=== PATIENT | female | born 2000 | race Two or more races ===

== ENCOUNTER 2024-06-03 12:48 | Emergency (ER) | payer OTHER ==
[~2024-06-03] VITALS: Ht 160 cm; Wt 56.7 kg
[2024-06-03 13:28] VITALS: BP 116/83; O2SAT 100
[2024-06-03] MEDS ORDERED: RINGERS SOLUTION,LACTATED 1,000 ML IV STA (13:58)
[2024-06-03] MEDS ORDERED: PIPERACILLIN/TAZOBACTAM SODIUM 2.25 GM VIAL IV STA (13:59)
[2024-06-03 14:46] LABS: HEMATOCRIT 42.9 % (36.0-45.00); HEMOGLOBIN 14.7 g/dL (12.0-15.00); MEAN CELL VOLUME 86.1 fL (80.00-100.00); MEAN CORPUSCULAR HEMOGLOBIN 29.6 pg (27.00-32.0); MEAN CORPUSCULAR HGB CONC 34.4 g/dl (32.0-36.0); PLATELET COUNT 242 K/uL (150-450); RED BLOOD COUNT 4.98 M/uL (4.00-6.00); RED CELL DISTRIBUTION WIDTH 13.4 % (11.5-14.5)
[2024-06-03 15:04] LABS: INR 1.02; PROTHROMBIN TIME 11.1 SECONDS (9.0-11.5)
[2024-06-03 15:05] LABS: CREATININE SERUM 0.92 mg/dL (0.55-1.02); GFR 76.33; POTASSIUM 3.99 mEq/L (3.5-5.1)
[2024-06-03 15:56] LABS: URINE APPEARANCE Clear; URINE BILIRRUBIN Negative (NEGATIVE); URINE BLOOD Negative; URINE COLOR Dark Yellow; URINE GLUCOSE Negative (NEGATIVE); URINE KETONE 15 (NEGATIVE); URINE LEUKOCYTE Moderate; URINE NITRATE Negative; URINE PROTEIN 30 (NEGATIVE)
[2024-06-03 15:57] LABS: URINE BACTERIA 5805.1 uL (0.0-1933); URINE EPITHELIAL CELLS 90.7 uL (0.0-38.8); URINE RBC 5.8 uL (0.0-20.8); URINE WBC 181.5 uL (0.0-23.2)
[2024-06-03 16:26] LABS: URINE CAST 1.32 uL (0.0-1.40)
[2024-06-03] MEDS ORDERED: CEPHALEXIN500 M1 PO (21:30)
== END 2024-06-03 22:13 | disposition home or self-care (01) ==
LOC: ER 12:50
PROVIDERS: General Practice
DX: N39.0 Urinary tract infection, site not specified (principal); R10.9 Unspecified abdominal pain; R10.2 Pelvic and perineal pain
CPT/HCPCS: 36415; 74177; Q9965